=== PATIENT | female | born 1975 | race Caucasian/White ===

== ENCOUNTER 2018-10-31 01:25 | Emergency (ER) | payer OTHER ==
[~2018-10-31] VITALS: Ht 152.4 cm; Wt 109.8 kg
[~2018-10-31 01:25] MED LIST: ASPIRIN325; AZURETTE 28 DA1 EACH; DULCOLAX5 MG; HYDROCODONE-AP1 EAC6 PO; IBUDONE 5-2001 EACH PO; IBUPROFEN 800800 M1 PO; MOBIC7.5 MG; PERCOCET 10-321 EACH; PERCOCET 5-3251 EACH PO
[2018-10-31] MEDS ORDERED: SYMBICORT160 MCG/4. INH (01:36)
[2018-10-31 02:13] LABS: ABSOLUTE BASOPHILS 0.1 thou/uL (0.0-0.2); ABSOLUTE EOSINOPHILS 0.1 thou/uL (0.0-0.7); ABSOLUTE LYMPHOCYTES 3.9 thou/uL (0.8-5.3); ABSOLUTE MONOCYTES 1.1 thou/uL (0.0-1.2); ABSOLUTE NEUTROPHILS 10.4 thou/uL (1.6-8.1); BASOPHILS 0.4 %; EOSINOPHILS 0.6 %; HEMATOCRIT 38.9 % (37.0-47.0); HEMOGLOBIN 12.7 gm/dL (12.0-15.0); LYMPHOCYTES 24.9 %; MCH 26.7 pg (26.0-34.0); MCHC 32.6 g/dL (28.0-37.0); MCV 81.9 fL (80.0-100.0); MONOCYTES 6.8 %; MPV 7.8 fl. (7.2-11.1); NUCLEATED RBCS 0 /100WBC; PLATELET COUNT* 410 thou/uL (150-400); POLYS 67.3 %; RBC 4.75 mil/uL (4.20-5.00); RDW-CV 14.6 % (10.5-14.5); WBC 15.5 thou/uL (4.0-11.0)
[2018-10-31 02:18] LABS: CALCIUM 8.7 mg/dL (8.5-10.1); CREATININE 0.9 mg/dL (0.6-1.3); POTASSIUM 3.3 mmol/L (3.5-5.1)
[2018-10-31 02:23] LABS: ALBUMIN 3.4 g/dL (3.4-5.0); TOTAL BILIRUBIN 0.2 mg/dL (<0.1-1.0); TOTAL PROTEIN 7.6 g/dL (6.4-8.2)
[2018-10-31] MEDS ORDERED: AMOXICILLIN875 MG PO (02:52)
[2018-10-31] MEDS ORDERED: TUSSIONEX PENN115 ML PO (02:52)
[2018-10-31] MEDS ORDERED: IPRAT-ALBUT 0.5-3 ML INH (03:06)
[2018-10-31] MEDS ORDERED: GUAIFENESIN1200 MG PO (03:08)
[2018-10-31 03:38] VITALS: BP 142/76
== END 2018-10-31 03:38 | disposition home or self-care (01) ==
LOC: M.ERS 01:25
PROVIDERS: Personal Emergency Response Attendant
DX: J45.901 Unspecified asthma with (acute) exacerbation (principal); Z90.49 Acquired absence of other specified parts of digestive tract; Z88.2 Allergy status to sulfonamides; Z88.1 Allergy status to other antibiotic agents; Z88.8 Allergy status to other drugs, medicaments and biological substances